=== PATIENT | female | born 1995 | race American Indian/Alaskan Native ===

== ENCOUNTER 2020-07-09 18:12 | Emergency (ER) | payer SELFPAY ==
--- NOTE | 2020-07-09 19:03 | Event Note ---
ED Screening Note Date of service: 07/09/20 Time: 18:57 ED Screening Note: Pt complains of rectal pain due to hemorrhoids This initial assessment/diagnostic orders/clinical plan/treatment(s) is/are subject to change based on patients health status, clinical progression and re- assessment by fellow clinical providers in the ED. Further treatment and workup at subsequent clinical providers discretion. Patient/guardian urged not to elope from the ED as their condition may be serious if not clinically assessed and managed. Initial orders include:
--- NOTE | 2020-07-09 19:47 | Emergency Department Report ---
ED General Adult HPI - General Chief complaint: Rectal Pain Stated complaint: HEMORRHOIDS Time Seen by Provider: 07/09/20 18:57 Source: patient Mode of arrival: Ambulatory Limitations: No Limitations - History of Present Illness Initial comments: Patient is a 24-year-old female presents emergency room complaints of hemorrhoids that began 3 days ago. She denies ever having this in the past. She states that she feels a lump present to the anal opening and has some discomfort there. She states that she has discomfort when she sits. She states that she does occasionally strain to have a bowel movement. She states that she is still able to have bowel movements. She states that she also does heavy lifting at [employer]. She states that she notices a small amount of right red blood upon wiping. She denies any blood clots, hematochezia, hematemesis, melena, abdominal pain, fever, nausea, vomiting, diarrhea, pus in the stool. No past medical history. No allergies medications. Last menstrual cycle 3 weeks ago. Patient has not been using anything for her symptoms. - Related Data Previous Rx's Medication Instructions Recorded Last Taken Type Docusate Sodium [Colace] 100 mg PO BID PRN #20 capsule 07/09/20 Unknown Rx Hydrocortisone [Anusol-Hc 2.5% TOP 1 applicatio RC TID #1 cream..g. 07/09/20 Unknown Rx CREAM] Lidocaine [Lidocaine GEL] 1 applic TP BID #30 gel..gram. 07/09/20 Unknown Rx Allergies Allergy/AdvReac Type Severity Reaction Status Date / Time No Known Allergies Allergy Unverified 07/09/20 18:28 ED Review of Systems ROS: Stated complaint: HEMORRHOIDS Other details as noted in HPI Comment: All other systems reviewed and negative ED Past Medical Hx - Past Medical History Previous Medical History?: No - Medications Home Medications: Home Medications Medication Instructions Recorded Confirmed Last Taken Type Docusate Sodium [Colace] 100 mg PO BID PRN #20 capsule 07/09/20 Unknown Rx Hydrocortisone [Anusol-Hc 2.5% TOP 1 applicatio RC TID #1 cream..g. 07/09/20 Unknown Rx CREAM] Lidocaine [Lidocaine GEL] 1 applic TP BID #30 gel..gram. 07/09/20 Unknown Rx ED Physical Exam - General Limitations: No Limitations General appearance: alert, in no apparent distress - Head Head exam: Present: atraumatic, normocephalic - Eye Eye exam: Present: normal appearance - ENT ENT exam: Present: mucous membranes moist - Respiratory Respiratory exam: Absent: respiratory distress, accessory muscle use - GI/Abdominal GI/Abdominal exam: Present: soft. Absent: distended, tenderness, guarding, rebound, rigid - Rectal Rectal exam: Present: other (dog day care attendant:GEREMIAS coyne, there is a 2cm non thrombosed external hemorrhoid present, no active bleeding, no gross blood) - Neurological Exam Neurological exam: Present: alert, oriented X3 - Psychiatric Psychiatric exam: Present: normal affect, normal mood - Skin Skin exam: Present: warm, dry ED Course Vital Signs 07/09/20 07/09/20 18:28 20:16 Temperature 99.0 F 98 F Pulse Rate 81 85 Respiratory 16 16 Rate Blood Pressure 118/73 112/52 [Right] O2 Sat by Pulse 99 100 Oximetry ED Medical Decision Making - Medical Decision Making Patient is a 24-year-old female presents emergency room complaints of hemorrhoids that began 3 days ago. She denies ever having this in the past. She states that she feels a lump present to the anal opening and has some discomfort there. She states that she has discomfort when she sits. She states that she does occasionally strain to have a bowel movement. She states that she is still able to have bowel movements. She states that she also does heavy lifting at [employer]. She states that she notices a small amount of right red blood upon wiping. She denies any blood clots, hematochezia, hematemesis, melena, abdominal pain, fever, nausea, vomiting, diarrhea, pus in the stool. No past medical history. No allergies medications. Last menstrual cycle 3 weeks ago. Patient has not been using anything for her symptoms. Vitals are normal. On exam:dog day care attendant:GEREMIAS coyne, there is a 2cm non thrombosed external hemorrhoid present, no active bleeding, no gross blood. Patient given prescription for Anusol, Colace, lidocaine gel. Advised patient Please use medication as prescribed. Please follow-up with your primary care doctor. Increase your water and fiber intake. Return to emergency room for new or worsening symptoms. Critical care attestation.: If time is entered above; I have spent that time in minutes in the direct care of this critically ill patient, excluding procedure time. ED Disposition Clinical Impression: External hemorrhoid Disposition: [id number] TO HOME OR SELFCARE Is pt being admited?: No Does the pt Need Aspirin: No Condition: Stable Instructions: How to Take a Sitz Bath, Hemorrhoids Additional Instructions: Please use medication as prescribed. Please follow-up with your primary care doctor. Increase your water and fiber intake. Return to emergency room for new or worsening symptoms. Prescriptions: Hydrocortisone [Anusol-Hc 2.5% TOP CREAM] 1 applicatio RC TID #1 cream..g. Docusate Sodium [Colace] 100 mg PO BID PRN #20 capsule PRN Reason: constipation Lidocaine [Lidocaine GEL] 1 applic TP BID #30 gel..gram. Referrals: [facility] [Provider Group] - 2-3 Days KENNY GARCIA MD [Staff Physician] - 2-3 Days Forms: Accompanied Note, Work/School Release Form(ED) Time of Disposition: 19:46 Print Language: KAZAKH
[2020-07-09 20:16] VITALS: BP 112/52
== END 2020-07-09 20:17 | disposition home or self-care (01) ==
LOC: ED 18:12
DX: K64.4 Residual hemorrhoidal skin tags (principal); Z79.899 Other long term (current) drug therapy
CPT/HCPCS: 99282